=== PATIENT | male | born 2000 | race Caucasian/White ===

== ENCOUNTER → 2024-05-08 | Outpatient (CLI) | payer OTHER ==
--- NOTE | 2024-05-08 18:59 | XR ---
EXAMINATION TYPE: XR cervical spine comp DATE OF EXAM: 05/08/2024 COMPARISON: None HISTORY: Cervical pain TECHNIQUE: 5 view cervical spine FINDINGS: No acute fracture or dislocation evident. Some mild foraminal narrowing is present C3-4 on the right. Left foramen are patent. Vertebral body alignment is preserved. Prevertebral space is norm al. Posterior spinal lamellar line is intact. Odontoid is visualized appears intact. Occiput overlies the odontoid. Some mild disc space narrowing may be present posteriorly C3-4 C4-5 C5-6. No acute changes identified. IMPRESSION: 1. Mild foraminal narrowing C3-4. [facility], Workstation: [facility], 05/08/2024 6:57 PM
--- NOTE | 2024-05-08 19:00 | XR ---
EXAMINATION TYPE: XR thoracic spine complete DATE OF EXAM: 05/08/2024 COMPARISON: None HISTORY: Pain heavy pulling injury TECHNIQUE: 3 view thoracic spine FINDINGS: There are 12 thoracic type vertebral bodies. Pedicles are intact. Disc heights are preserve d. Vertebral body heights are preserved. Alignment is preserved. IMPRESSION: 1. Unremarkable thoracic spine. [facility], Workstation: [facility], 05/08/2024 6:57 PM
== END | disposition home or self-care (01) ==
LOC: RADXRMAIN 17:36
PROVIDERS: ATTEND Emergency Medicine
CPT/HCPCS: 72050; 72072

== ENCOUNTER → 2024-05-10 | Outpatient (CLI) | payer OTHER ==
--- NOTE | 2024-05-10 11:15 | XR ---
EXAMINATION TYPE: XR chest 2V DATE OF EXAM: 05/10/2024 10:30 AM COMPARISON: None CLINICAL INDICATION: Male, 24 years old with history of RO7.9 UPPER BACK PAIN AND UPPER CHEST; [facility] TECHNIQUE: XR chest 2V Frontal and lateral views of the chest. FINDINGS: Lungs/Pleura: There is no evidence of pleural effusion, focal consolidation, or pneumothorax. Pulmonary vascularity: Unremarkable. Heart/mediastinum: Cardiomediastinal silhouette is unremarkable. Musculoskeletal: No acute osseous pathology. Other findings: None IMPRESSION: No acute cardiopulmonary disease/process. [facility], , 05/10/2024 11:13 AM
== END | disposition home or self-care (01) ==
LOC: RADXRMAIN 10:14
PROVIDERS: ATTEND Emergency Medicine
DX: R07.9 Chest pain, unspecified (principal)
CPT/HCPCS: 71046

== ENCOUNTER → 2024-06-20 | Outpatient (CLI) | payer OTHER ==
--- NOTE | 2024-06-20 11:25 | CT ---
EXAMINATION TYPE: CT cervical spine wo con CT DLP: 454 mGycm, Automated exposure control for dose reduction was used. DATE OF EXAM: 06/20/2024 11:17 AM COMPARISON: Cervical spine radiograph 05/08/2024. CLINICAL INDICATION:Male, 24 years old with history of M54.2 CERVICALGIA; PH[facility], posterior lower neck p ain after a pop after forced pulling TECHNIQUE: Axial CT images from the skull base to the inferior aspect of T2 we obtained without intra venous contrast. Coronal and sagittal reformatted images were also reviewed. FINDINGS: Fracture: None. Osseous structures: Unremarkable Vertebral alignment: No spondylolisthesis. Straightening of the normal cervical lordosis which may be due to patient position versus muscle spasm. Spinal canal/Neural Foramina: No significant central canal or neural foraminal stenosis at C2-C3. Broad-based disc bulge with mild effacement of anterior thecal sac at C3-C4. Uncovertebral joint hype rtrophy with mild bilateral neural foraminal stenosis. Broad-based disc bulge without significant effacement of the anterior thecal sac at C4-C5. No signifi cant neural foraminal stenosis. Broad-based disc bulge with mild effacement of anterior thecal sac at C5-C6. No significant neural fo raminal stenosis. Broad-based disc bulge with mild effacement of anterior thecal sac at C6-C7. No significant neurofora sean stenosis. No significant central canal or neural foraminal stenosis at C7-T1. Neck soft tissues: Prevertebral soft tissues are within normal limits. Other: The airway is patent. The lung apices are clear. IMPRESSION: 1. No evidence of cervical spine fracture. 2. Mild multilevel degenerative disc disease as described above. [facility], , 06/20/2024 11:22 AM
== END | disposition home or self-care (01) ==
LOC: RADCTMAIN 10:37
PROVIDERS: ATTEND Emergency Medicine
DX: M50.30 Other cervical disc degeneration, unspecified cervical region (principal)
CPT/HCPCS: 72125

== ENCOUNTER → 2024-11-26 | Outpatient (CLI) | payer OTHER ==
[2024-11-26 09:09] VITALS: BP 133/80; PULSE 71; RESP 17
--- NOTE | 2024-11-28 10:50 | P.PAINPG ---
PQRS Measure Charge Sheet Comment: HISTORY OF PRESENT ILLNESS: A 24 yr old male w mother at side as a referral from [facility] presents today w severe and chronic neck pain > 3 mo secondary to radiculopathy, spondylosis and facet arthropathy without myelopathy for evaluation. Pt states pain level is provoked at 2-6 /10 in intensity, constant, localized in the lower cervical spine, predominantly axial, sharp in character w occasional shooting pain towards the L side of neck, L shoulder and upper back. Pain is provoked by rotation. Pain is alleviated by PT x 6 wks which ended in Jul 2024, physician guided home exercises 4-5 times weekly since Jul 2024, ice, medications, repositioning and rest . Cervical disability score at 20. PMH: OA, Asthma, GERD PSH: Magness Extractions SH: Never smoker, Occ ETOH use, No illicit drug use FH: Mo- DM, CAD All: See list Medications include Neurontin REVIEW OF ORGAN SYSTEMS: CONSTITUTIONAL: No fevers or chills. No recent weight loss. NEUROLOGICAL: + numbness and tingling along the distal extremities. No seizure disorders or headaches. MUSCULOSKELETAL: + pain PSYCHIATRIC: Denies current depression or suicidal thoughts. Physical Examinations : Constitutional : Cooperative , not in acute distress . Neurologic : Cranial nerve II to XII intact. No focal neurological deficits. Psychiatric : alert & oriented x 3. Matching mood & appropriate affect. Judgment & insight intact. Musculoskeletal : Cervical Spine Motor strength in the deltoid and biceps: Normal right side. Normal Left side Motor strength biceps and the wrist extensors: Normal right side . Normal left side Motor strength in the triceps muscle: Normal right side. Normal left side Deep tendon reflexes: Normal at the biceps. Normal at Brachioradialis. Normal at triceps Vertebral body tenderness to deep palpation over C7 Cervical facet loading test: positive bilaterally Spurling test: positive L C6-C7/ C7-T1 Neck distraction test: positive bilaterally Arash sign: positive bilaterally Lumbar spine Motor strength lower extremities ,thigh and legs 5/5 Right side , 5/5 Left side Deep tendon reflexes : Normal Knee Jerk. Normal Ankle Jerk Vertebral body tenderness over Wu Test positive Lumbar facet Loading Test: positive Right / positive Left Range of motion of the lumbar spine Flexion 30 degrees, extension 10 degrees Straight Leg Raise test: Left/ Right positive at degrees Jose test: positive right / positive left. Severe tenderness over the Sacroiliac joint on the Right / Left sides Gaenslen test: positive bilaterally Seated flexion test: positive bilaterally. Sacral spine : Severe tenderness over the Sacroiliac joint: right side / left side Range of motion: Flexion of the lumbar spine <60 degrees Range of motion: Extension of the lumbar spine <20 degrees Gaenslen's Test positive Jose test: positive right side / left side Thigh Thrust Test Sacral Thrust Test Imaging: MRI non contrast lumbar spine form Sep 2024 reviewed Assessment/ Plan : Cervical radiculopathy Recommendation of L TFESI C6-C7/ C7-T1 #1. Risks, benefits of procedure discussed and patient verbalized understanding. Admits to anti- coagulant use or medical history of diabetes. Protocol for discontinuation/ continuation of medications escobar procedure discussed. All questions answered. I have spent greater than 30 minutes on patient care today. Dr Simon was available by phone for the evaluation of this patient. The time was used to review the medical records including relevant urine studies and Prescription history (MAPs), review of the available imaging, evaluation and examination of the patient, coordination of care with the medical staff and if applicable referring physicians, as well as creation of the medical record Controlled Substance Measures - Controlled Substance Measures Is patient prescribed a controlled substance at discharge?: Yes When asked, does pt state using other controlled substances?: No If prescribed controlled substance>3 days was MAPS reviewed?: Prescribed <3 Days
== END ==
LOC: PNWHC3 08:15
PROVIDERS: ATTEND Specialist
DX: M47.22 Other spondylosis with radiculopathy, cervical region (principal); M48.02 Spinal stenosis, cervical region; E11.9 Type 2 diabetes mellitus without complications
CPT/HCPCS: 99212

== ENCOUNTER 2025-01-04 09:38 | Day surgery (SDC) | payer OTHER ==
[2025-01-02 09:56] VITALS: BMI 29.2
[~2025-01-04 09:38] MED LIST: LACTATED RINGERS 1,000 ML IV SCH
[2025-01-04 09:53] VITALS: TEMP 97.1
[2025-01-04] MEDS ORDERED: DEXAMETHASONE SOD PHOSPHATE 10 MG/ML 1 ML VIAL ONE (10:28)
[2025-01-04] MEDS ORDERED: IOPAMIDOL M200 10 ML VIAL ONE (10:28)
--- NOTE | 2025-01-04 10:47 | P.PCN ---
Date of Procedure: 01/04/25 Procedure(s) Performed: PREOPERATIVE DIAGNOSIS: 1-cervical radiculopathy . 2-cervical degenerative disc disease. 3-cervical spinal stenosis POSTOPERATIVE DIAGNOSIS: Same as preop diagnosis. PROCEDURE 1. Transforaminal epidural steroid injection under fluoroscopic guidance at left C6-7, and left C7-T1 level. (Fluoro images in the radiology Department ) 2. Cervical epidurogram . ANESTHESIA: Local with 1% lidocaine 3 ml. EBL: Minimal PROCEDURE INDICATION: The patient with neck pain and radiculopathy symptoms unresponsive to conservative treatment. PROCEDURE DESCRIPTION / TECHNIQUE: The patient was seen and identified in the preoperative area. Risks, benefits, complications, and alternatives were discussed with the patient. The patient agreed to proceed with the procedure and signed the consent., and vital signs were stable. Patient was taken to the OR and time out was completed. The patient was placed in the lateral position on procedure table(left side up ) . The cervical area was prepped and draped in the usual sterile fashion. Critical pause was taken. Vital signs were closely monitored during the procedure. Using oblique fluoroscopy, the foraminal between left C6-7 level was identified, and the skin and deeper tissues just below was localized with 1% lidocaine. Subsequently, a 23-gauge 3.5-inch spinal needle was advanced under a tunneled view fluoroscopic guidance just lateral edge of the foraminal of left C6-7 under lateral fluoroscopy, the needle was then advanced to the posterior border of the interforaminal space we then placement confirmed with the AP and lateral view. After negative aspiration of CSF and blood and with no paresthesias, 1 mL Isovue 200 contrast dye was injected excellent epidurogram and outlining of the nerve root Subsequently, 1 mL of block solution containing 10 mg dexamethasone PF was injected. Needle was removed and the same procedure was repeated at the left C7- T1 level . At the end of the procedure, skin was cleansed, and bandages were applied. COMPLICATIONS:none DISPOSITION / PLANS: The patient was placed in a supine position and transferred to the recovery area in a stable condition for observation. There was no evidence of lower extremity motor or sensory deficit after the procedure. Patient was discharged from the recovery room after meeting discharge criteria. Home discharge instructions were given to the patient by the staff. The patient was reexamined prior to discharge.
[2025-01-04 11:06] VITALS: BP 132/77; PULSE 78; RESP 18
--- NOTE | 2025-01-04 11:13 | FL ---
EXAMINATION TYPE: FL guided pain mgmt statistic DATE OF EXAM: 01/04/2025 FLUOROSCOPY 26 sec fluoro, dap .12210 mGym2 M47.812,M54.2 TRANSFORAMINAL CERVICAL EPI STEROID 2 images are provided. [facility], Workstation: [facility], 01/04/2025 11:11 AM
== END 2025-01-04 11:17 | disposition home or self-care (01) ==
LOC: ORPAIN 09:38
PROVIDERS: ATTEND Specialist
DX: M50.123 Cervical disc disorder at C6-C7 level with radiculopathy (principal); M48.02 Spinal stenosis, cervical region
CPT/HCPCS: 64483; 64484; J1100; Q9966

== ENCOUNTER → 2025-01-28 | Outpatient (CLI) | payer OTHER ==
[2025-01-28 08:37] VITALS: BP 163/101; PULSE 61; RESP 19
--- NOTE | 2025-01-28 16:41 | P.PAINPG ---
PQRS Measure Charge Sheet Comment: HISTORY OF PRESENT ILLNESS: A 25 yr old male w mother at side presents today w severe and chronic neck pain > 3 mo secondary to radiculopathy, spondylosis and facet arthropathy without myelopathy for evaluation s/p L TFESI C6-C7/ C7-T1 #1. Pt states he experienced 0 % pain relief x 3 wks s/p procedure. Pt states pain level is provoked at 2-6 /10 in intensity, constant, localized in the lower cervical spine, predominantly axial, sharp in character w occasional shooting pain towards the L side of neck, L shoulder and upper back. Pain is provoked by rotation. Pain is alleviated by PT x 6 wks which ended in Jul 2024, physician guided home exercises 4-5 times weekly since Jul 2024, ice, medications, repositioning and rest . Cervical disability score at 20. Interventional procedures include L TFESI C6-C7/ C7-T1 x1 (01/02) Medications include Neurontin REVIEW OF ORGAN SYSTEMS: CONSTITUTIONAL: No fevers or chills. No recent weight loss. NEUROLOGICAL: + numbness and tingling along the distal extremities. No seizure disorders or headaches. MUSCULOSKELETAL: + pain PSYCHIATRIC: Denies current depression or suicidal thoughts. Physical Examinations : Constitutional : Cooperative , not in acute distress . Neurologic : Cranial nerve II to XII intact. No focal neurological deficits. Psychiatric : alert & oriented x 3. Matching mood & appropriate affect. Judgment & insight intact. Musculoskeletal : Cervical Spine Motor strength in the deltoid and biceps: Normal right side. Normal Left side Motor strength biceps and the wrist extensors: Normal right side . Normal left side Motor strength in the triceps muscle: Normal right side. Normal left side Deep tendon reflexes: Normal at the biceps. Normal at Brachioradialis. Normal at triceps Vertebral body tenderness to deep palpation over C7 Cervical facet loading test: positive bilaterally Spurling test: positive L C6-C7/ C7-T1 Neck distraction test: positive bilaterally Arash sign: positive bilaterally Lumbar spine Motor strength lower extremities ,thigh and legs 5/5 Right side , 5/5 Left side Deep tendon reflexes : Normal Knee Jerk. Normal Ankle Jerk Vertebral body tenderness over Wu Test positive Lumbar facet Loading Test: positive Right / positive Left Range of motion of the lumbar spine Flexion 30 degrees, extension 10 degrees Straight Leg Raise test: Left/ Right positive at degrees Jose test: positive right / positive left. Severe tenderness over the Sacroiliac joint on the Right / Left sides Gaenslen test: positive bilaterally Seated flexion test: positive bilaterally. Sacral spine : Severe tenderness over the Sacroiliac joint: right side / left side Range of motion: Flexion of the lumbar spine <60 degrees Range of motion: Extension of the lumbar spine <20 degrees Gaenslen's Test positive Jose test: positive right side / left side Thigh Thrust Test Sacral Thrust Test Imaging: MRI non contrast lumbar spine form Sep 2024 reviewed Assessment/ Plan : Cervical radiculopathy Will follow up w Dr Grier to explore additional treatment options. Will not do BL MBB C6-C7, C7-T1 at this time. All questions answered. I have spent greater than 30 minutes on patient care today. Dr Simon was available by phone for the evaluation of this patient. The time was used to review the medical records including relevant urine studies and Prescription history (MAPs), review of the available imaging, evaluation and examination of the patient, coordination of care with the medical staff and [facility], as well as creation of the medical record PQRS Narrative: Hx Alcohol Use (MH) No Home Medications: Ambulatory Orders Montelukast [Singulair] 10 mg PO DAILY 01/02/25 Otc Allergy Pill 1 tab PO DAILY 01/02/25 Pantoprazole [Protonix] 40 mg PO DAILY 01/02/25 diazePAM [Valium] 10 mg PO ONCE 01/02/25 Controlled Substance Measures - Controlled Substance Measures Is patient prescribed a controlled substance at discharge?: No
== END ==
LOC: PNWHC3 08:04
PROVIDERS: ATTEND Specialist
DX: M47.26 Other spondylosis with radiculopathy, lumbar region (principal); F12.90 Cannabis use, unspecified, uncomplicated
CPT/HCPCS: 99212